=== PATIENT | female | born 1985 | race Caucasian/White ===

== ENCOUNTER → 2019-01-03 | Outpatient (CLI) | payer BC ==
[~2019-01-03] MED LIST: BIRTH CONTROL; BIRTH CONTROL PILLS; CEFTIN500 MG PO; FLEXERIL10 MG PO; LORTAB 5/500 501 TAB PO
== END ==
LOC: COL.RAD 12:34
DX: R10.11 Right upper quadrant pain (principal)

== ENCOUNTER → 2019-01-06 | Outpatient (CLI) | payer BC | LOC: COL.RAD 11:48 | DX: R10.11 Right upper quadrant pain (principal) | CPT/HCPCS: A9537 ==

== ENCOUNTER 2019-01-21 07:25 | Day surgery (SDC) | payer BC ==
[~2019-01-21] VITALS: Ht 172.7 cm; Wt 126.0 kg
[2019-01-21] MEDS ORDERED: WELLBUTRIN XL150 MG PO (08:18)
[2019-01-21] MEDS ORDERED: TIROSINT75 MC1 PO (08:19)
[2019-01-21] MEDS ORDERED: NORVASC 5MG5 MG/TAB PO (08:20)
[2019-01-21] MEDS ORDERED: HYZAAR 25 MG-101 TAB PO (08:21)
[2019-01-21] MEDS ORDERED: APRI 0.15 MG-0.1 TAB PO (08:21)
[2019-01-21 08:23] VITALS: BP 125/78; PULSE 98; TEMP 97.9
[2019-01-21 12:35] VITALS: BP 102/68; PULSE 97; TEMP 98
--- NOTE | 2019-01-21 12:35 | NUR ---
TO RM 6 PER CART FROM PACU. ALERT ORIENTED X3, TALKING TO STAFF. PATIENT REQUEST TO SLEEP. 02 AT 2L AND SATS 96%. C/O "MILD PAIN AND SLIGHT NAUSEA" SANDOVAL SET DRESSINGS OVER THE 4 INCISIONS CLEAN DRY AND INTACT.
[2019-01-21] MEDS ORDERED: NORCO 325 MG-51 TAB PO (12:49)
[2019-01-21 12:50] VITALS: BP 122/67; PULSE 87
--- NOTE | 2019-01-21 12:50 | NUR ---
FATHER AT BEDSIDE. PATIENT SLEEPING QUIETLY WATER AT BEDSIDE
[2019-01-21 13:00] VITALS: BP 126/63; PULSE 95
--- NOTE | 2019-01-21 13:00 | NUR ---
PATIENT TAKING A FEW SIPS STATED WHEN SHE HAS THE CRAMPING IS WHEN SHE HAS THE NAUSEA. STATED PAIN AND NAUSEA ABOUT THE SAME.
[2019-01-21 13:45] VITALS: BP 135/68; PULSE 88
--- NOTE | 2019-01-21 13:45 | NUR ---
SLEEPING QUIETLY 02 AT 2L -SATS 95%
[2019-01-21 14:15] VITALS: BP 128/70; PULSE 102
--- NOTE | 2019-01-21 14:15 | NUR ---
AWAKE AND TALKING TO FATHER. TAKING SIPS OF WATER RECEIVED CRACKERS
--- NOTE | 2019-01-21 14:20 | NUR ---
DISCONTINUED O2 C/O PAIN 01/14, REFUSED ANY PAIN MEDS AT THIS TIME. PATIENT STATED SHE WAS WORRIED ABOUT GETTING NAUSEATED AGAIN.
--- NOTE | 2019-01-21 14:30 | NUR ---
AMBULATED TO BATHROOM WITH STAND BY ASSIST. VOIDED AND TOLERATED WELL. PATIENT STATED SHE FELT MUCH BETTER STANDING.
--- NOTE | 2019-01-21 14:40 | NUR ---
RECEIVED DISCHARGE INSTRUCTIONS AND VERBALIZED UNDERSTANDING DISCONTINUED IV AND INT- CATHETER INTACT
--- NOTE | 2019-01-21 14:50 | NUR ---
PATIENT GETTING DRESSED, REFUSED ANY ASSISTANCE.
--- NOTE | 2019-01-21 15:00 | NUR ---
DISCHRGED PER WC BY NURSING STAFF TO PRIVATE CAR IN CARE OF FATHER- CINDY.
== END 2019-01-21 15:03 | disposition home or self-care (01) ==
LOC: SDCO 07:25
DX: K81.1 Chronic cholecystitis (principal); I10 Essential (primary) hypertension; G47.33 Obstructive sleep apnea (adult) (pediatric); E66.01 Morbid (severe) obesity due to excess calories; E78.5 Hyperlipidemia, unspecified; G89.29 Other chronic pain; M54.5 Low back pain; Z82.49 Family history of ischemic heart disease and other diseases of the circulatory system; Z80.0 Family history of malignant neoplasm of digestive organs; Z88.8 Allergy status to other drugs, medicaments and biological substances; K21.9 Gastro-esophageal reflux disease without esophagitis; E03.9 Hypothyroidism, unspecified
CPT/HCPCS: J1100; J1885; J2250; J2405; J2550; J2704; J3010; J7120